=== PATIENT | female | born 1960 | race Caucasian/White ===

== ENCOUNTER 2019-07-15 06:59 | Emergency (ER) | payer MEDICARE, OTHER ==
[~2019-07-15] VITALS: Ht 167.6 cm; Wt 81.4 kg
--- NOTE | 2019-07-15 07:22 | PHYS DOC ---
Past History Past Medical History: Anxiety, Bipolar, Migraines Past Surgical History: Appendectomy, Oophorectomy, Tonsillectomy Alcohol Use: Occasionally Additional Alcohol Information: recovering alcoholic Drug Use: None Adult General Chief Complaint Chief Complaint: abdominal distention HPI HPI Patient is a 59-year-old female who presented to ER today for evaluation of abdominal distention that been going on for 2 months. Patient denies any nausea or vomiting, no pain. Patient was a former alcoholic, she reduced her drinking about 2 years ago. sHe has history of bipolar disorder she is on Seroquel. Patient also has history of migraine headache, she has been taken acetaminophen daily for her headache. Patient denies any nausea or vomiting. Patient denies any fever. Patient denies any chest pain, no trouble breathing. She felt bloated. All other ROS is negative unless otherwise noted in HPI Review of Systems Review of Systems See above Allergies Allergies Allergies Coded Allergies Type Severity Reaction Last Updated Verified No Known Drug Allergies 07/15/19 No Physical Exam Physical Exam See above Constitutional: Well developed, well nourished, no acute distress, non-toxic appearance. [] HENT: Normocephalic, atraumatic, bilateral external ears normal, oropharynx moist, no oral exudates, nose normal. [] Eyes: PERRLA, EOMI, conjunctiva normal, no discharge. [] Neck: Normal range of motion, no tenderness, supple, no stridor. [] Cardiovascular:Heart rate regular rhythm, no murmur [] Lungs & Thorax: Bilateral breath sounds clear to auscultation [] Abdomen: Bowel sounds normal, soft, no tenderness, no masses, no pulsatile masses. Moderate abdominal distention. No tenderness to palpation, no guarding, no rebound. Skin: Warm, dry, no erythema, no rash. [] Back: No tenderness, no CVA tenderness. [] Extremities: No tenderness, no cyanosis, no clubbing, ROM intact, no edema. [] Neurologic: Alert and oriented X 3, normal motor function, normal sensory funct ion, no focal deficits noted. [] Psychologic: Affect normal, judgement normal, mood normal. [] Current Patient Data Vital Signs Vital Signs Date Time Temp Pulse Resp B/P (MAP) Pulse Ox O2 Delivery O2 Flow Rate FiO2 07/15/19 07:10 98.8 101 18 96 Room Air EKG EKG [] Radiology/Procedures Radiology/Procedures [][address] [id number] IMAGING REPORT Signed PATIENT: JC ALONSO ACCOUNT: [id number] : 1960 LOCATION: ER AGE: 59 SEX: F EXAM STATUS: REG ER ORD. PHYSICIAN: CARI FORTUNE DO REASON: abdominal pain and swelling PROCEDURE: CT ABD PELV W/ IV CONTRST ONLY PQRS Compliance Statement: One or more of the following individualized dose reduction techniques were utilized for this examination: 1. Automated exposure control 2. Adjustment of the mA and/or kV according to patient size 3. Use of iterative reconstruction technique CT abdomen/pelvis with contrast 07/15/2019 8:17 AM INDICATION: Abdominal pain and swelling COMPARISON: None available TECHNIQUE: Multiple axial CT images of the abdomen and pelvis were obtained after the intravenous administration of nonionic contrast. Coronal and sagittal reformats are provided. FINDINGS: Lung bases are clear. Heart size is within normal limits. Subcentimeter hypodensities are identified scattered throughout the liver which are too small characterize, however statistically favored represent simple cysts or hemangiomas in the absence of underlying malignancy. Calcifications within the liver and spleen likely represent sequela prior granulomatous exposure. Portal venous system is widely patent. Pancreas and gallbladder are normal in appearance. There is nodular thickening of the adrenal glands bilaterally measuring up to 3.1 x 1.6 cm on the left and 2.4 x 1.3 cm in the right. Attenuation on the left measures 8 Hounsfield units which favors lipid rich adrenal adenomas. Attenuation on the right remains indeterminate. Abdominal aorta is mildly tortuous, normal in caliber. Mild calcified atheromatous plaque is identified. No pathologically enlarged lymph nodes are identified within the abdomen and pelvis. There is no free fluid or free intraperitoneal air. The kidneys enhance symmetrically. There is no suspicious renal mass. There is no hydronephrosis. There are no suspected calculi within the kidneys, ureters or urinary bladder. Urinary bladder is within normal limits given degree of distention. Uterus and adnexa are normal by CT. No suspicious pelvic mass is identified. Small and large bowel are normal in caliber. There is no evidence for bowel obstruction. There are no pericolonic inflammatory changes. Appendix is not definitively visualized. There are no pericecal inflammatory changes identified. No suspicious osseous abnormality is identified. IMPRESSION: 1. No acute abnormality is identified in abdomen and pelvis. Specifically, no bowel obstruction or inflammation. Appendix is not definitively visualized. 2. Nodular thickening of the adrenal glands bilaterally with attenuation on the left suggestive of a lipid rich adrenal adenoma. Attenuation on the right is indeterminate. Six-month follow-up adrenal mass protocol CT may be of benefit. 3. Subcentimeter hypodensities within the liver are too small to characterize, statistically favored represent simple cysts or hemangiomas. Attention to these findings on follow-up imaging is recommended. Electronically signed by: Esther Medrano MD (07/15/2019 9:12 AM) [facility] DICTATED AND SIGNED BY: ESTHER MEDRANO MD DATE: 07/15/19911 CC: SARAI GARCIA; CARI FORTUNE DO ~ Course & Med Decision Making Course & Med Decision Making Pertinent Labs and Imaging studies reviewed. (See chart for details) Patient is a 59-year-old female who was evaluated in the ER today for 2 months history of abdominal distention, felt bloated. Workup did not find any acute problem, she'll be discharged home, she will need to follow up with her family doctor for referral to GI specialist for further evaluation. Patient is amenable to plan of care. Dragon Disclaimer Dragon Disclaimer This electronic medical record was generated, in whole or in part, using a voice recognition dictation system. Departure Departure: Impression: Primary Impression: Abdominal pain Disposition: HOME, SELF-CARE Condition: STABLE Referrals: SARAI GARCIA (PCP) please call your doctor for follow up next week. Patient Instructions: Abdominal Pain CARI FORTUNE DO Jul 15, 2019 07:22
[2019-07-15 07:46] LABS: BASO # 0.1 x10^3/uL (0.0-0.2); BASO % 1 % (0-3); EOS % 1 % (0-3); HEMATOCRIT 43.3 % (36.0-47.0); HEMOGLOBIN 14.5 g/dL (12.0-15.5); LYMPH # 1.6 x10^3/uL (1.0-4.8); LYMPH % 18 % (24-48); MEAN CORPUSCULAR HEMOGLOBIN 32 pg (25-35); MEAN CORPUSCULAR HGB CONC 33 g/dL (31-37); MEAN CORPUSCULAR VOLUME 94 fL (79-100); MONO # 0.5 x10^3/uL (0.0-1.1); MONO % 6 % (0-9); NEUT # 6.5 x10^3uL (1.8-7.7); NEUT % 75 % (31-73); PLATELET COUNT 281 x10^3/uL (140-400); RED BLOOD COUNT 4.59 x10^6/uL (3.50-5.40); WHITE BLOOD COUNT 8.7 x10^3/uL (4.0-11.0)
[2019-07-15 07:54] LABS: CALCIUM 9.2 mg/dL (8.5-10.1); CREATININE 0.8 mg/dL (0.6-1.0); GFR 73.9; POTASSIUM 3.7 mmol/L (3.5-5.1)
[2019-07-15 08:00] LABS: ALBUMIN 3.6 g/dL (3.4-5.0); TOTAL BILIRUBIN 0.2 mg/dL (0.2-1.0); TOTAL PROTEIN 7.1 g/dL (6.4-8.2)
[2019-07-15 08:13] LABS: AMPHETAMINE/METHAMPHETAMINE NEG (NEG); BARBITURATES NEG (NEG); BENZODIAZEPINES NEG (NEG); CANNABINOIDS NEG (NEG); COCAINE NEG (NEG); METHADONE NEG (NEG); OPIATES NEG (NEG); PHENCYCLIDINE NEG (NEG)
[2019-07-15 08:29] LABS: BILIRUBIN,URINE NEG (NEG); CLARITY,URINE CLEAR; COLOR,URINE STRAW; GLUCOSE,URINE NEG (NEG)
[2019-07-15 08:30] LABS: BACTERIA,URINE 0 /HPF (0-FEW); NITRITE,URINE NEG (NEG); SQUAMOUS EPITHELIAL CELL,UR FEW /LPF; UROBILINOGEN,URINE 0.2 mg/dL (0.2 mg/dL); YEAST,URINE PRESENT /HPF
[2019-07-15] MEDS ORDERED: CONTRAST GIVEN MC PRN (08:30)
[2019-07-15] MEDS ORDERED: IOHEXOL 300 MG/ML 75 ML VIAL. IV ONE (08:30)
--- NOTE | 2019-07-15 09:15 | RAD ---
PQRS Compliance Statement: One or more of the following individualized dose reduction techniques were utilized for this examination: 1. Automated exposure control 2. Adjustment of the mA and/or kV according to patient size 3. Use of iterative reconstruction technique CT abdomen/pelvis with contrast 07/15/2019 8:17 AM INDICATION: Abdominal pain and swelling COMPARISON: None available TECHNIQUE: Multiple axial CT images of the abdomen and pelvis were obtained after the intravenous administration of nonionic contrast. Coronal and sagittal reformats are provided. FINDINGS: Lung bases are clear. Heart size is within normal limits. Subcentimeter hypodensities are identified scattered throughout the liver which are too small characterize, however statistically favored represent simple cysts or hemangiomas in the absence of underlying malignancy. Calcifications within the liver and spleen likely represent sequela prior granulomatous exposure. Portal venous system is widely patent. Pancreas and gallbladder are normal in appearance. There is nodular thickening of the adrenal glands bilaterally measuring up to 3.1 x 1.6 cm on the left and 2.4 x 1.3 cm in the right. Attenuation on the left measures 8 Hounsfield units which favors lipid rich adrenal adenomas. Attenuation on the right remains indeterminate. Abdominal aorta is mildly tortuous, normal in caliber. Mild calcified atheromatous plaque is identified. No pathologically enlarged lymph nodes are identified within the abdomen and pelvis. There is no free fluid or free intraperitoneal air. The kidneys enhance symmetrically. There is no suspicious renal mass. There is no hydronephrosis. There are no suspected calculi within the kidneys, ureters or urinary bladder. Urinary bladder is within normal limits given degree of distention. Uterus and adnexa are normal by CT. No suspicious pelvic mass is identified. Small and large bowel are normal in caliber. There is no evidence for bowel obstruction. There are no pericolonic inflammatory changes. Appendix is not definitively visualized. There are no pericecal inflammatory changes identified. No suspicious osseous abnormality is identified. IMPRESSION: 1. No acute abnormality is identified in abdomen and pelvis. Specifically, no bowel obstruction or inflammation. Appendix is not definitively visualized. 2. Nodular thickening of the adrenal glands bilaterally with attenuation on the left suggestive of a lipid rich adrenal adenoma. Attenuation on the right is indeterminate. Six-month follow-up adrenal mass protocol CT may be of benefit. 3. Subcentimeter hypodensities within the liver are too small to characterize, statistically favored represent simple cysts or hemangiomas. Attention to these findings on follow-up imaging is recommended. Electronically signed by: Azalea Meredith MD (07/15/2019 9:12 AM) [id number]
[2019-07-15 09:50] VITALS: BP 151/97
[2019-07-15] MEDS ORDERED: FLUCONAZOLE 100 MG TABLET. PO ONE (10:00)
== END 2019-07-15 09:53 | disposition home or self-care (01) ==
LOC: ER 06:59
DX: R10.9 Unspecified abdominal pain (principal); R14.0 Abdominal distension (gaseous); F41.9 Anxiety disorder, unspecified; F31.9 Bipolar disorder, unspecified; G43.909 Migraine, unspecified, not intractable, without status migrainosus; Z90.89 Acquired absence of other organs; Z90.722 Acquired absence of ovaries, bilateral
CPT/HCPCS: 36415; 74177; 80053; 80307; 81001; 83690; 85025; 85610; 85730; 87086; 99285; G0480; Q9967